=== PATIENT | male | born 1985 | race Caucasian/White ===

== ENCOUNTER 2016-07-27 21:06 | Emergency (ER) | payer OTHER ==
[~2016-07-27] VITALS: Ht 172.7 cm; Wt 90.7 kg
[~2016-07-27 21:06] MED LIST: AUGMENTIN 875875 MG PO; BENZONATATE200 M1 PO; CIPRODEX 0.3%-7.5 ML AD; IBUPROFEN200 M2 PO; IBUPROFEN800 M1 PO; IBUPROFEN800 MG PO; MOTRIN800 MG PO; MULTIVITAMIN1 TAB PO; PERCOCET 325 MG1 TA2 PO; PREDNICOT20 MG PO; PROVENTIL HFA6.7 GM INH; TYLENOL #31 TAB PO; ZITHROMAX250 M2 PO; [UNRECOGNIZED DRUG - OTHER] PO
--- NOTE | 2016-07-27 22:11 | ED NECK/BACK PAIN COMPLAINT ---
History of Present Illness General Chief Complaint: Low Back Pain/Injury Stated Complaint: BACK PAIN Source: patient Exam Limitations: no limitations Vital Signs & Intake/Output Vital Signs & Intake/Output Vital Signs Date Time Temp Pulse Resp B/P Pulse O2 O2 Flow FiO2 Ox Delivery Rate 07/27 2258 98.4 84 18 128/73 98 Room Air 07/27 2252 Room Air 07/273 98.6 85 18 131/75 97 Room Air ED Intake and Output 07/28 0000 07/27 1200 Intake Total 0 Output Total Balance 0 Intake, Oral 0 Patient 200 lb Weight Allergies Uncoded Allergies: CORY DONUTS COFFEE (Severe, GUM SWELLING 11/17/15) PET HAIR/DANDER (DYSPNEA 08/02/14) Reconcile Medications Ibuprofen 800 MG TABLET 1 TAB PO TID PRN back pain Triage Note: PT TO TRIAGE WITH C/O CHRONIC LOWER BACK PAIN 10/10 TODAY. HX SLIPPED DISC AND DISC HERNIA. VSS. Triage Nurses Notes Reviewed? yes HPI: Radhika is a 31-year-old male past medical history of slipped disc in his L1-L2 as well as a left ear cholesteatoma presenting to the emergency department for lumbar pain. Patient states his pain is not any different from his usual pain. He endorses a flareup of back pain approximately 2-3 times a year for which she uses 800 mg of Motrin. He's run out of Motrin and would like a prescription for 800 mg of Motrin as well as a refill. Patient denies any other symptoms including difficulty with voiding or defecation. She denies any systemic symptoms such as fever, chills, weakness, changes in sensation. Pt denies radiation of pain. (MONTSE CINTRON MD) Past History Travel History Traveled to [place] past 21 day No Medical History Any Pertinent Medical History? 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 No (MONTSE CINTRON MD) Review of Systems Review of Systems Constitutional: Denies: no symptoms. Comments Review of systems: See HPI, All other systems negative. Constitutional, no chills no fever, no malaise no weight loss HEENT: No visual changes no sore throat no congestion, no ear pain Cardiovascular: No chest pain , no palpitation , no orthopnea no ankle swelling Skin, no jaundice no rashes, no change in skin Respiratory: No dyspnea no cough no sputum no hemoptysis GI: No nausea no vomiting, no diarrhea, no bloating/constipation : No dysuria No hematuria, no frequency, no discharge Muscle skeletal: +lumbar back pain, R>L. No joint pain, no joint swelling, no neck pain, Neurologic: No numbness no confusion, no headache Psych: No stress no anxiety no depression,. Heme/endocrine: No bruising no bleeding no polyuria no polydipsia Immunology: No lymphadenopathy, no splenectomy (MONTSE CINTRON MD) Physical Exam Physical Exam Neck: normal inspection, supple, full range of motion Comments: Well-developed well-nourished person in no acute distress HEENT: Normal EENT exam; PERRL, EOMI, no nystagmus. HEAD is atraumatic. moist mucous membranes. Neck: Supple, no lymphadenopathy, normal range of motion without pain or tenderness Back: Nontender, no CVA tenderness. Full range of motion Cardiovascular: Regular rate and rhythms no murmurs rubs or gallops, normal JVP Respiratory: Chest nontender.There were no bony deformities, no asymmetry. No respiratory distress. Patient speaking in full complete sentences. Breath sounds clear to auscultation bilaterally: NO W/R/R Abdomen: Soft, nontender nondistended, no appreciable organomegaly. Normal bowel sounds. No rebound/guarding, No appreciable enlargement of the abdominal aorta, No ascites. Extremity: No edema, full range of motion of extremities, normal and equal pulses bilaterally, 5 out of 5 strength noted to bilateral upper and lower extremities Neuro: Alert oriented x3, motor sensory normal, cranial nerves II through XII grossly intact. There were no obvious focal neurologic abnormalities. Skin: No appreciable rash on exposed skin, skin is warm and dry. Psych: Mood and affect is normal, memory and judgment is normal. (MONTSE CINTRON MD) Progress Differential Diagnosis: cauda equina syn, herniated disc, pyelo/UTI, sciatica, spinal cord inj, T/L spine injury, ureterolithiasis Plan of Care: Patient is a well appearing male with a completely normal physical exam including neuro exam. No difficulties with urination or defecating. Patient denies any dysuria or increased urinary frequency. No fevers or chills to suggest infectious etiology. Patient is otherwise well-appearing with a completely normal exam. Tenderness to palpation over the left lower lumbar paraspinous area. Will give the patient a prescription for 800 mg of Motrin to use when necessary every 8 hours. Patient given return precautions in case his symptoms worsen or he has any new symptoms. (ABDULAZIZ FONTANA,MONTSE) Departure Departure Time of Disposition: 2213 Disposition: HOME OR SELF CARE Condition: Stable Clinical Impression Primary Impression: Lumbar back pain Qualifiers: Chronicity: chronic Back pain laterality: right Sciatica presence: without sciatica Qualified Codes: M54.5 - Low back pain; G89.29 - Other chronic pain Referrals: PATIENT HAS NO PRIMARY CARE DR (PCP/Family) Additional Instructions: Use Motrin 800 mg every 6 hours as needed for the pain. If you are using the Motrin for more than 2-3 days neuro, R using something to protect her belly from developing an ulcer such as Zantac or omeprazole. Departure Forms: Customer Survey General Discharge Information Prescriptions: Current Visit Scripts Ibuprofen 1 TAB PO TID PRN back pain #60 TAB Ref 1 (ABDULAZIZ FONTANA,MONTSE) PA/BEZEL CUTTER Co-Sign Statement Statement: ED Attending supervision documentation- [] I saw and evaluated the patient. I have also reviewed all the pertinent lab results and diagnostic results. I agree with the findings and the plan of care as documented in the PA's/BEZEL CUTTER's documentation. [X] I have reviewed the ED Record and agree with the PA's/BEZEL CUTTER's documentation. [] Additions or exceptions (if any) to the PAs/BEZEL CUTTER's note and plan are summarized below: [] (CASI FONTANA,DANIA King)
[2016-07-27] MEDS ORDERED: IBUPROFEN800 M1 PO (22:18)
[2016-07-27 22:59] VITALS: BP 128/73
== END 2016-07-27 23:00 ==
LOC: ERH 21:06
DX: M54.5 Low back pain (principal)

== ENCOUNTER 2016-07-29 07:33 | Emergency (ER) | payer OTHER ==
[~2016-07-29] VITALS: Ht 172.7 cm; Wt 90.7 kg
[2016-07-29 07:36] VITALS: BP 140/88
[2016-07-29] MEDS ORDERED: AUGMENTIN 500-1 EACH PO (08:21)
--- NOTE | 2016-07-29 08:21 | ED SKIN/ALLERGY COMPLAINT ---
History of Present Illness General Chief Complaint: Foot or Ankle Injury Stated Complaint: LEFT TOE PAIN, INFECTION? Source: patient Exam Limitations: no limitations Vital Signs & Intake/Output Vital Signs & Intake/Output Vital Signs Date Time Temp Pulse Resp B/P Pulse O2 O2 Flow FiO2 Ox Delivery Rate 07/29 0736 98.2 74 18 140/88 99 Room Air Allergies Uncoded Allergies: CORY DONUTS COFFEE (Severe, GUM SWELLING 11/17/15) PET HAIR/DANDER (DYSPNEA 08/02/14) Reconcile Medications Augmentin (Augmentin 500-125 Tablet) 500 MG-125 MG TABLET 1 TAB PO BID skin infection Ibuprofen 800 MG TABLET 1 TAB PO TID PRN back pain Triage Note: 31 Y/O MALE C/O "SWELLING" TO L GREAT TOE SINCE LAST NIGHT; DENIES ANY INJURIES OR TRAUMA. TOOK 800MG IBUPROPHEN 10 MIN AGO. STATES "I THINK ITS AN INFECTION" Triage Nurses Notes Reviewed? yes HPI: This patient is a 31-year-old male who presented to the emergency department today for evaluation of the left great toe pain. The patient reported that he felt something 2 days ago but, "did not think anything of it." He reports that last night he noticed the skin around his great toe was red and swollen. He reported 7 out of 10, throbbing, nonradiating pain that was constant and kept him up at night. He tried taking ibuprofen without any relief of his symptoms. Denied fevers or chills. No trauma to the area noted. (XIOMARA OLIVEROS PA-C) Past History Travel History Traveled to [place] past 21 day No Medical History Any Pertinent Medical History? 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 No (XIOMARA OLIVEROS PA-C) Review of Systems Review of Systems Constitutional: Reports: no symptoms. EENTM: Reports: no symptoms. Respiratory: Reports: no symptoms. Cardiovascular: Reports: no symptoms. GI: Reports: no symptoms. Musculoskeletal: Reports: no symptoms. Skin: Reports: see HPI. Neurological/Psychological: Reports: no symptoms. All Other Systems: Reviewed and Negative (XIOMARA OLIVEROS PA-C) Physical Exam Physical Exam General Appearance: well developed/nourished, no apparent distress, alert, awake Comments: Well-developed well-nourished person in no acute distress HEENT: Head normocephalic, moist membranes Neck: Supple, no lymphadenopathy Back: Normal gait Respiratory: No respiratory distress. Speaking in full sentences Extremities: No edema, full range of motion Neuro: Alert and oriented x3 Psych: Mood affect normal, normal memory normal judgment. Skin: Warm and dry, no rash on exposed skin. Erythema noted to the nail fold of the great toe with mild amount of fluctuance to the medial aspect. No drainage. No induration. Mildly tender to palpation (XIOMARA OLIVEROS PA-C) Progress Differential Diagnosis: abscess/cellulitis, paronychia Plan of Care: Orders Procedure Date/time Status EXTREMETIES CULTURE 07/29 817 Active Microbiology 07/29 814 EXTREMITIE: Culture & Sensitivity - RECD 07/29 814 EXTREMITIE: Gram Stain - RECD Departure Departure Disposition: HOME OR SELF CARE Condition: Stable Clinical Impression Primary Impression: Paronychia Qualifiers: Laterality: left Qualified Code: L03.012 - Cellulitis of left finger Referrals: PATIENT HAS NO PRIMARY CARE DR (PCP/Family) Additional Instructions: Take antibiotic as prescribed. You may follow-up with the podietrist whose information has been provided to you in this packet. Return for any worsening symptoms or concerns. Departure Forms: Customer Survey General Discharge Information Prescriptions: Current Visit Scripts Augmentin (Augmentin 500-125 Tablet) 1 TAB PO BID #20 TAB (XIOMARA OLIVEROS PA-C) PA/RISK ANALYST Co-Sign Statement Statement: ED Attending supervision documentation- [] I saw and evaluated the patient. I have also reviewed all the pertinent lab results and diagnostic results. I agree with the findings and the plan of care as documented in the PA's/RISK ANALYST's documentation. x I have reviewed the ED Record and agree with the PA's/RISK ANALYST's documentation. [] Additions or exceptions (if any) to the PAs/RISK ANALYST's note and plan are summarized below: [] (LYNNETTE FONTANA,DOMINIK) Procedures Incision and Drainage Site: LEFT GREAT TOE Blade Size: 11 I & D Procedure: Yes: betadine prep, sterile drapes applied, sterile dressing applied. No: wick placed. Progress: Patient tolerated the procedure well. (DOMO MORGAN,XIOMARA)
== END 2016-07-29 08:35 ==
LOC: ERH 07:33
DX: L03.032 Cellulitis of left toe (principal)
CPT/HCPCS: 87184; 87070; 87147

== ENCOUNTER 2016-08-01 16:39 | Emergency (ER) | payer OTHER ==
[~2016-08-01] VITALS: Ht 172.7 cm; Wt 90.7 kg
[~2016-08-01 16:39] MED LIST changes: +AUGMENTIN 500-1 EACH PO
[2016-08-01 16:44] VITALS: BP 129/81
[2016-08-01] MEDS ORDERED: BACTRIM DS TAB1 EACH PO (17:04)
--- NOTE | 2016-08-01 17:05 | ED ANKLE/FOOT INJURY COMPLAINT ---
History of Present Illness General Chief Complaint: Suture Removal/Wound Recheck Stated Complaint: WOUND RECHECK Source: patient Exam Limitations: no limitations Vital Signs & Intake/Output Vital Signs & Intake/Output Vital Signs Date Time Temp Pulse Resp B/P Pulse O2 O2 Flow FiO2 Ox Delivery Rate 08/01 1644 97.2 79 14 129/81 100 Room Air Allergies Uncoded Allergies: CORY DONUTS COFFEE (Severe, GUM SWELLING 11/17/15) PET HAIR/DANDER (DYSPNEA 08/02/14) Reconcile Medications Augmentin (Augmentin 500-125 Tablet) 500 MG-125 MG TABLET 1 TAB PO BID skin infection Ibuprofen 800 MG TABLET 1 TAB PO TID PRN back pain Sulfamethoxazole/Trimethoprim (Bactrim Ds Tablet) 800 MG-160 MG TABLET 1 TAB PO BID cellulitis Triage Note: PT TO ED FOR L BIG TOE "INEFCTION". REPORTING HE WAS SEEN IN ED RECENTLY FOR SAME, STATES "THEY SLICED IT OPEN BUT I THINK THEY LEFT A PIECE OF INFECTION IN IT" TOE APPEARS SLIGHTLY RED. PT STATING TOE IS FEELING MUCH BETTER. Triage Nurses Notes Reviewed? yes Duration: day(s):, constant, continues in ED Timing: recent history Severity: moderate, severe Pain/Injury Location: Left: 1st toe. Method of Injury: unknown No Modifying Factors: none HPI: 31-year-old male comes into emergency room for further evaluation of redness and pain to his left great toe. Symptoms were going on for days now. Patient was seen here already and had a drainage performed. Patient is supposed to be following up with podiatry. Patient's culture grew out something abnormal he reports. Upon evaluating in the computer it shows MRSA. Mild throbbing pain. Continuous. Nonradiating. (VIRAL HAN) Past History Travel History Traveled to [place] past 21 day No Medical History Any Pertinent Medical History? 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 No (VIRAL HAN) Review of Systems Review of Systems Constitutional: Reports: no symptoms. EENTM: Reports: no symptoms. Respiratory: Reports: no symptoms. Cardiovascular: Reports: no symptoms. GI: Reports: no symptoms. Genitourinary: Reports: no symptoms. Musculoskeletal: Reports: see HPI. Skin: Reports: see HPI. Neurological/Psychological: Reports: no symptoms. Hematologic/Endocrine: Reports: no symptoms. Immunologic/Allergic: Reports: no symptoms. All Other Systems: Reviewed and Negative (VIRAL HAN) Physical Exam Physical Exam General Appearance: well developed/nourished, mild distress Head: atraumatic Eyes: Bilateral: normal appearance. Ears, Nose, Throat: normal ENT inspection, hearing grossly normal Neck: normal inspection Cardiovascular/Respiratory: no respiratory distress Back: normal inspection Leg/Knee/Thigh Left: normal range of motion Ankle Left: normal inspection Foot Left: erythema left great toe, mild drainage, no abscess appreciated Neuro/Vascular: normal motor function, normal sensation Tendon: normal tendon function Psychiatric: awake, alert, oriented x 3 Skin: intact, normal color, warm/dry (VIRAL HAN) Progress Differential Diagnosis: cellulitis, septic arthritis, gout, fracture, sprain, contusion Plan of Care: 08/01/2016 6:40:01 PM Patient clinically looks well. Patient is nontoxic-appearing. Patient is in no apparent distress. Patient looks to probably have the ingrown toenail with a secondary cellulitis. Patient was referred to podiatry. Patient was started on Bactrim due to previous MRSA. Return if any other concerns worsening symptoms. Patient understands and agrees with plan of care. (VIRAL HAN) Departure Departure Disposition: HOME OR SELF CARE Condition: Stable Clinical Impression Primary Impression: Cellulitis of toe of left foot Referrals: AMILCAR ARCHIBALD DPM PATIENT HAS NO PRIMARY CARE DR (PCP/Family) Additional Instructions: Take Bactrim as prescribed. Warm soaks with the toe. Follow-up with substation operator conversion next week. Please go over all results of today's visit with your primary care doctor. Contact your primary care doctor to let them know you were here in the emergency room. There may be nonspecific findings which may not be related to your visit today here in the emergency room but may require further evaluation and chronic monitoring by your primary care doctor. If you had a laceration today the chance of foreign body always remains. You should follow-up with your primary care doctor for recheck in 3-5 days for a wound check. If you had an x-ray done there is a chance that a fracture could have been missed on initial read and you should follow-up with your primary care doctor for repeat x-rays if symptoms persist. If your blood pressure was elevated here in the emergency room please have rechecked by her primary care doctor within the next 48 hours by your primary care doctor. If you were prescribed a narcotic here in the emergency room or any type of controlled substances you're not allowed to drive while taking this medication or operate any type of heavy machinery. Narcotics can make you feel lightheaded dizziness nausea and can cause constipation. You may need to cotton picker operator a stool softener. Thank you for choosing [facility] emergency room. Please return to the emergency room immediately if you have any other concerns worsening of symptoms. Departure Forms: Customer Survey General Discharge Information Prescriptions: Current Visit Scripts Sulfamethoxazole/Trimethoprim (Bactrim Ds Tablet) 1 TAB PO BID #20 TAB (VIRAL HAN) PA/INSIDE WIREMAN Co-Sign Statement Statement: ED Attending supervision documentation- [] I saw and evaluated the patient. I have also reviewed all the pertinent lab results and diagnostic results. I agree with the findings and the plan of care as documented in the PA's/INSIDE WIREMAN's documentation. x I have reviewed the ED Record and agree with the PA's/INSIDE WIREMAN's documentation. [] Additions or exceptions (if any) to the PAs/INSIDE WIREMAN's note and plan are summarized below: [] (LYNNETTE FONTANA,DOMINIK)
== END 2016-08-01 17:11 ==
LOC: ERH 16:39
DX: L03.116 Cellulitis of left lower limb (principal)

== ENCOUNTER 2016-10-21 21:03 | Emergency (ER) | payer OTHER ==
[~2016-10-21 21:03] MED LIST changes: +BACTRIM DS TAB1 EACH PO
--- NOTE | 2016-10-21 21:45 | ED GENERAL ADULT ---
History of Present Illness General Chief Complaint: General Adult Stated Complaint: X4DAYS MEMORY LOSS,NIGHT TERRORS,FATIGUE,HX TUMOR Source: patient Exam Limitations: clinical condition, poor historian Vital Signs & Intake/Output Vital Signs & Intake/Output Vital Signs Date Time Temp Pulse Resp B/P B/P Pulse O2 O2 Flow FiO2 Mean Ox Delivery Rate 10/22 0129 97.9 67 20 114/72 98 10/21 2109 96.5 72 22 104/69 98 ED Intake and Output 10/22 0000 10/21 1200 Intake Total 1000 Output Total Balance 1000 Intake, IV 1000 Patient 230 lb Weight Allergies Uncoded Allergies: CORY DONUTS COFFEE (Severe, GUM SWELLING 11/17/15) PET HAIR/DANDER (DYSPNEA 08/02/14) Triage Note: PER PT RECENT MEMORY LOSS, NIGHT SWAETS TREMORS AND LOSS OF THOUGHTS, PT VAGUE IN TRIAGE. NOTED PROFUSE SWEATING AT BROW Triage Nurses Notes Reviewed? yes Onset: Abrupt Duration: day(s): Timing: recent history HPI: 10/21/16 10 PM 31-year-old man with a history of CHOLESTEATOMA of the left ear. He is status post surgery 2 years ago and is due for her second surgery with Dr. Cheek. 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 He feels like he is walking on clouds. He notes that he's been looking at the GPS in the [place] seemed to be not moving when he drives. He denies any headache or visual complaints at this time. He is oriented 3 in the Emergency Department. He has a left facial droop that is residual since his last surgery. The onset of the symptoms were abrupt, the duration has been for days, the severity is significant as his symptoms required him to come to the emergency department for care. (KAYLEE DAMON DO) Reconcile Medications No Known Home Medications (AB FONTANA,JONAH Maguire) Past History Travel History Traveled to [place] past 21 day No Medical History Any Pertinent Medical History? 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 No (KAYLEE DAMON DO) Review of Systems Review of Systems Constitutional: Reports: no symptoms. EENTM: Reports: no symptoms. Denies: visual changes, ear pain. Respiratory: Reports: no symptoms. Cardiovascular: Reports: no symptoms. GI: Reports: no symptoms. Genitourinary: Reports: no symptoms. Musculoskeletal: Reports: no symptoms. Skin: Reports: no symptoms. Neurological/Psychological: Denies: headache. Hematologic/Endocrine: Reports: no symptoms. Immunologic/Allergic: Reports: no symptoms. All Other Systems: Reviewed and Negative (KAYLEE DAMON DO) Physical Exam Physical Exam General Appearance: well developed/nourished, alert, awake, anxious, mild distress Head: atraumatic, normal appearance Eyes: Bilateral: normal appearance, PERRL, EOMI. Ears, Nose, Throat: normal pharynx, normal ENT inspection, tm normal Neck: normal inspection, supple, full range of motion Respiratory: normal breath sounds, chest non-tender Cardiovascular: regular rate/rhythm Peripheral Pulses: 4+ radial (R), 4+ radial (L) Gastrointestinal: soft, non-tender Back: normal range of motion Extremities: normal inspection, normal range of motion, no edema Neurologic/Psych: awake, alert, oriented x 3, left facial drop Skin: intact Core Measures ACS in differential dx? No CVA/TIA Diagnosis: No Severe Sepsis Present: No Septic Shock Present: No (KAYLEE DAMON DO) Progress Differential Diagnoses I considered the following diagnoses in my evaluation of the patient: [ Cavernosus sinus thrombosis, malignant otitis externa, CVA, intracerebral mass, sepsis] Plan of Care: Orders Procedure Date/time Status Add-on Test (ER Only) 10/21 2226 Active URINE DRUG SCREEN FOR ER ONLY 10/21 2226 Active PROTHROMBIN TIME 10/21 2145 Complete LYME TITRE 10/21 2145 Active COMPREHENSIVE METABOLIC PANEL 10/21 2145 Complete CBC WITHOUT DIFFERENTIAL 10/21 2145 Complete ETHANOL 10/21 2144 Complete Laboratory Tests 10/21/162144: Anion Gap 6, Estimated GFR > 60, BUN/Creatinine Ratio 15.6, Glucose 89, Calcium 8.8, Total Bilirubin 1.3, AST 35, ALT 90 H, Alkaline Phosphatase 63, Total Protein 6.3, Albumin 3.9, Globulin 2.4, Albumin/Globulin Ratio 1.6, PT 12.3, INR 1.17, CBC w Diff NO MAN DIFF REQ, RBC 5.42, MCV 84.6, MCH 28.5, RDW 12.5, MPV 8.7, Gran % 55.6, Lymphocytes % 32.1, Monocytes % 9.8 H, Eosinophils % 2.1, Basophils % 0.4, Absolute Granulocytes 4.2, Absolute Lymphocytes 2.4, Absolute Monocytes 0.7 H, Absolute Eosinophils 0.2, Absolute Basophils 0, PUBS MCHC 33.7 , Lyme Disease Antibody Pending, Serum Alcohol < 10.0 Initial ED EKG: none (KAYLEE DAMON DO) Diagnostic Imaging: Viewed by Me: CT Scan. Discussed w/RAD: CT Scan. Radiology Impression: head ct... no acute change from prior... full report below. Comments: PATIENT: NINA IRIZARRY PRESENT AGE: 31 PATIENT ACCOUNT NO: [id number] : 86 LOCATION: [facility] ORDERING PHYSICIAN: KAYLEE DAMON DO SERVICE DATE: 10/21/16 EXAM TYPE: CAT - CT HEAD W&WO IV CONTRAST EXAMINATION: CT HEAD WITHOUT and with CONTRAST CLINICAL INFORMATION: Altered mental status . History of cholesteatoma left ear COMPARISON: CT head 08/02/2014. MRI of head 08/06/[address] internal auditory canal 08/04/2016 TECHNIQUE: Axial images obtained through the head. Images obtained pre and post contrast. 95 mL Optiray 320 is for postcontrast imaging. FINDINGS: There is no evidence of acute intracranial hemorrhage or territorial infarction. No abnormal mass effect or midline shift is seen. Claros to white matter differentiation is well preserved. No extra-axial fluid collections are identified. No abnormal enhancement postcontrast. The ventricles are normal in size. There is no abnormal attenuation within the brain parenchyma. There is soft tissue density with erosion of the left petrous bone involving the external ear canal mastoid air cells and middle ear cavity. This is consistent with history of cholesteatoma of the left ear. This is unchanged since CAT scan of 08/04/2016 IMPRESSION: 1. No acute intracranial pathology. 2. Soft tissue density with loss of bone of the left mastoid and middle ear. DICTATED BY: MATY HEATH MD DATE/TIME DICTATED:10/21/162307 CD REACTOR OPERATOR:MICHELE DATE/TIME TRANSCRIBED:10/21/162307 CONFIDENTIAL, DO NOT COPY WITHOUT APPROPRIATE AUTHORIZATION. <Electronically signed in Other Vendor System> SIGNED BY: MATY HEATH MD 10/21/16 2040 (AB FONTANA,JONAH Maguire) Departure Departure Disposition: STILL A PATIENT Condition: Stable Departure Forms: Customer Survey General Discharge Information (KAYLEE DAMON DO) Departure Clinical Impression Primary Impression: Cholesteatoma Secondary Impressions: Dizziness, Headache Referrals: PATIENT HAS NO PRIMARY CARE DR (PCP/Family) Prescriptions: Current Visit Scripts No Known Home Medications Comments 10/22/16, 1:30am... discussed at length with patient... scans/labs benign..pt referred to neurology and will have surgery in 4 days. Pt stable for discharge with close follow up advised. (AB FONTANA,JONAH Maguire) Critical Care Note Critical Care Note Critical Care Time: non-applicable (KAYLEE DAMON DO) Critical Care Note Critical Care Time: non-applicable (KAYLEE DAMON DO)
[2016-10-21 22:01] LABS: ABSOLUTE BASOPHIL COUNT 0 /CUMM (0.0-0.2); ABSOLUTE EOSINOPHIL COUNT 0.2 /CUMM (0.0-0.7); ABSOLUTE GRANULOCYTE CT 4.2 /CUMM (1.4-6.5); ABSOLUTE LYMPH COUNT 2.4 /CUMM (1.2-3.4); ABSOLUTE MONOCYTE COUNT 0.7 /CUMM (0.10-0.60); BASOPHIL % 0.4 % (0.0-2.0); EOSINOPHIL % 2.1 % (0-5); GRANULOCYTE % 55.6 % (42.2-75.2); HEMATOCRIT 45.9 % (42-52); MEAN CORPUSCULAR HGB 28.5 PG (27.0-31.0); MEAN CORPUSCULAR HGB CONC 33.7 G/DL (33.0-37.0); MEAN CORPUSCULAR VOLUME 84.6 FL (80.0-94.0); MEAN PLATELET VOLUME 8.7 FL (7.4-10.4); PLATELET COUNT 244 /CUMM (130-400); RBC DISTRIBUTION WIDTH 12.5 % (11.5-14.5); RED BLOOD CELL CT 5.42 /CUMM (4.70-6.10); WHITE BLOOD CELL COUNT 7.5 /CUMM (4.8-10.8)
[2016-10-21 22:08] LABS: PT 12.3 SEC (9.4-12.5)
--- NOTE | 2016-10-21 23:18 | CT SCAN REPORT ---
EXAMINATION: CT HEAD WITHOUT and with CONTRAST CLINICAL INFORMATION: Altered mental status . History of cholesteatoma left ear COMPARISON: CT head 08/02/2014. MRI of head 08/06/[address] internal auditory canal 08/04/2016 TECHNIQUE: Axial images obtained through the head. Images obtained pre and post contrast. 95 mL Optiray 320 is for postcontrast imaging. FINDINGS: There is no evidence of acute intracranial hemorrhage or territorial infarction. No abnormal mass effect or midline shift is seen. Claros to white matter differentiation is well preserved. No extra-axial fluid collections are identified. No abnormal enhancement postcontrast. The ventricles are normal in size. There is no abnormal attenuation within the brain parenchyma. There is soft tissue density with erosion of the left petrous bone involving the external ear canal mastoid air cells and middle ear cavity. This is consistent with history of cholesteatoma of the left ear. This is unchanged since CAT scan of 08/04/2016 IMPRESSION: 1. No acute intracranial pathology. 2. Soft tissue density with loss of bone of the left mastoid and middle ear.
[2016-10-22 01:29] VITALS: BP 114/72
== END 2016-10-22 01:30 ==
LOC: ERH 21:03
PROVIDERS: Emergency Medicine
DX: H71.92 Unspecified cholesteatoma, left ear (principal); R42 Dizziness and giddiness; R51 Headache
CPT/HCPCS: 86618; 80307; G0480

== ENCOUNTER 2017-12-28 04:14 | Emergency (ER) | payer OTHER ==
[~2017-12-28] VITALS: Ht 172.7 cm; Wt 99.8 kg
--- NOTE | 2017-12-28 04:38 | ED HEADACHE COMPLAINT ---
History of Present Illness General Chief Complaint: Headache Stated Complaint: "I FEEL A LOT OF PRESSURE IN MY HEAD" Source: patient, old records Exam Limitations: no limitations Vital Signs & Intake/Output Vital Signs & Intake/Output Vital Signs Date Time Temp Pulse Resp B/P B/P Pulse O2 O2 Flow FiO2 Mean Ox Delivery Rate 12/28 0418 97.4 76 18 113/73 95 Room Air Allergies Uncoded Allergies: CORY DONUTS COFFEE (Severe, GUM SWELLING 11/17/15) PET HAIR/DANDER (DYSPNEA 08/02/14) Reconcile Medications No Known Home Medications Triage Note: SEE NURSES NOTES Triage Nurses Notes Reviewed? yes HPI: Patient just finished Ciprodex for a left otitis externa. Patient flew home from [place] this evening. When he landed he stretched and when he lifted his left arm he felt a sudden pressure sensation in his left ear that radiates into his head. The pain is constant. There is no radiation. There is no aggravating or mitigating factors. The pressure is rated at a 6 out of 10. Patient denies blurry vision. There is no room spinning dizziness. There is no nausea or vomiting. Patient is concerned because he's had a cholesteatoma removed 2 from that ear. Past History Travel History Traveled to [place] past 21 day No Medical History Any Pertinent Medical History? 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 No Review of Systems Review of Systems Constitutional: Reports: no symptoms. Eyes: Reports: no symptoms. Ears, Nose, Throat, Mouth: Reports: see HPI, ear pain. Respiratory: Reports: no symptoms. Cardiovascular: Reports: no symptoms. Gastrointestinal/Abdominal: Reports: no symptoms. Genitourinary: Reports: no symptoms. Musculoskeletal: Reports: no symptoms. Skin: Reports: no symptoms. Neurological/Psychological: Reports: see HPI, headache. Hematologic/Endocrine: Reports: no symptoms. Endocrine: Reports: no symptoms. Immunologic/Allergic: Reports: no symptoms. All Other Systems: Reviewed and Negative Physical Exam Physical Exam General Appearance: well developed/nourished, alert, awake, anxious, mild distress Head: atraumatic, normal appearance Eyes: Bilateral: PERRL, EOMI. Ears, Nose, Throat: WHITE PUS IN RIGHT EAR CANAL Neck: normal inspection, supple, full range of motion Respiratory: normal breath sounds, chest non-tender, no respiratory distress, lungs clear Cardiovascular: regular rate/rhythm, normal peripheral pulses Gastrointestinal: normal bowel sounds, soft, non-tender, no organomegaly Back: normal inspection, normal range of motion Extremities: normal inspection, normal capillary refill, normal range of motion, no edema Psychiatric: awake, alert, oriented x 3 Cranial Nerves: normal hearing, normal speech, PERRL Coordination/Gait: normal gait Motor/Sensory: no motor/sensory deficits Skin: intact, normal color, warm/dry Core Measures Sepsis Present: No Sepsis Focused Exam Completed? No Progress Differential Diagnosis: tension KWONG, OTITISEXTERNA CHOLESEOCYTOMA Plan of Care: Orders Procedure Date/time Status CT HEAD WO IV CONTRAST 12/28 434 Active Diagnostic Imaging: Viewed by Me: CT Scan. Discussed w/RAD: CT Scan. Radiology Impression: PATIENT: NINA IRIZARRY PRESENT AGE: 32 PATIENT ACCOUNT NO: [id number] : 86 LOCATION: [facility] ORDERING PHYSICIAN: Daniel Yanes MD SERVICE DATE: 12/28/17 EXAM TYPE: CAT - CT HEAD WO IV CONTRAST EXAMINATION: CT HEAD WITHOUT CONTRAST CLINICAL INFORMATION: Pain and pressure behind right ear COMPARISON: 10/21/2016 TECHNIQUE : Contiguous axial imaging was performed from the skull base to vertex without intravenous administration of contrast. DLP: 620.41 mGy-cm FINDINGS: There is no evidence of acute intracranial hemorrhage or territorial infarction. No abnormal mass effect or midline shift is seen. Claros to white matter differentiation is well preserved. No extra-axial fluid collections are identified. The ventricles are normal in size. There is no abnormal attenuation within the brain parenchyma. No evidence of acute calvarial fracture. There are postoperative changes from prior left-sided mastoidectomy; redemonstrated areas of surrounding bony erosion appear without significant change from prior. There is mild partial opacification of the right mastoid air cells. The visualized portions of the paranasal sinuses are well-aerated. IMPRESSION: No acute intracranial pathology. Mild partial opacification of the right mastoid air cells. DICTATED BY: Sree Freitas MD DATE/TIME DICTATED:12/28/17450 ARTIST WOODBLOCK:MICHELE DATE/ TIME TRANSCRIBED:12/28/17450 CONFIDENTIAL, DO NOT COPY WITHOUT APPROPRIATE AUTHORIZATION. <Electronically signed in Other Vendor System> SIGNED BY: Sree Freitas MD 12/28/17458 Departure Departure Disposition: HOME OR SELF CARE Condition: Stable Clinical Impression Primary Impression: Otitis externa Referrals: Patient Has No Primary Care Dr (PCP/Family) Additional Instructions: TAKEANTIBIOTICS PRESCRIBED RETRN FOR ANYCONCERNS Departure Forms: Customer Survey General Discharge Information Prescriptions: Current Visit Scripts Amoxicillin/Potassium Clav (Augmentin 875-125 Tablet) 1 TAB PO BID #20 TAB Ibuprofen 1 TAB PO TID PRN PAIN #30 TAB
--- NOTE | 2017-12-28 04:59 | CT SCAN REPORT ---
EXAMINATION: CT HEAD WITHOUT CONTRAST CLINICAL INFORMATION: Pain and pressure behind right ear COMPARISON: 10/21/2016 TECHNIQUE: Contiguous axial imaging was performed from the skull base to vertex without intravenous administration of contrast. DLP: 620.41 mGy-cm FINDINGS: There is no evidence of acute intracranial hemorrhage or territorial infarction. No abnormal mass effect or midline shift is seen. Claros to white matter differentiation is well preserved. No extra-axial fluid collections are identified. The ventricles are normal in size. There is no abnormal attenuation within the brain parenchyma. No evidence of acute calvarial fracture. There are postoperative changes from prior left-sided mastoidectomy; redemonstrated areas of surrounding bony erosion appear without significant change from prior. There is mild partial opacification of the right mastoid air cells. The visualized portions of the paranasal sinuses are well-aerated. IMPRESSION: No acute intracranial pathology. Mild partial opacification of the right mastoid air cells.
[2017-12-28] MEDS ORDERED: IBUPROFEN800 M1 PO (05:59)
[2017-12-28] MEDS ORDERED: AUGMENTIN 875-1 EACH PO (05:59)
[2017-12-28 06:05] VITALS: BP 150/80
== END 2017-12-28 06:06 ==
LOC: ERH 04:14
DX: H60.91 Unspecified otitis externa, right ear (principal); H71.90 Unspecified cholesteatoma, unspecified ear